=== PATIENT | female | born 1940 | race Caucasian/White ===

== ENCOUNTER 2020-03-06 14:41 | Observation (INO) ==
--- NOTE | 2020-03-06 15:48 | Emergency Department Note ---
History of Present Illness General Chief complaint: Dizziness Time Seen by Provider: 03/06/20 15:19 Source: patient Mode of arrival: EMS Limitations: no limitations History of Present Illness Maximum Pain Intensity: 2 This patient is an 80-year-old female who presents to the emergency department for evaluation of head pressure and hypertension. Patient was seen here Monday due to head pressure, dizziness and elevated blood pressure. She states that her Lopressor dosage was doubled at that visit. She had her pressure checked yesterday which was normal. She states that today, she woke up and felt very fatigued despite getting a good night sleep. She developed some head pressure. She states that this was not painful, but just a pressure sensation. She checked her blood pressure and found it to be elevated, initially 168/84 which then increased to 175/94. She had some chest pressure at this time. She called 911 and when they checked her blood pressure, it was even more elevated. She was given nitro and aspirin in the ambulance with improvement of her blood pressure and improvement of her symptoms. Her daughter states that the patient sounded out of breath when she called her, but the patient denies shortness of breath. Patient denies numbness, weakness, blurred/double vision, slurred spee ch, confusion, abdominal pain, nausea or vomiting. Patient has a history of "heart blockage" which was found on a catheterization done 2 years ago in [place]. She states they were not able to stent the blockage and decided on medical management instead. She sees Dr. Montano locally, but denies stress test or catheterization since that. She states that the catheterization was done due to fatigue as well as pain across her upper back. Patient additionally reports history of TIA and "a silent stroke" and takes Plavix. Home Medications Home Medications Medication Instructions Recorded Confirmed Type PreserVision AREDS-2 1 tab PO AMHS 03/06/20 03/06/20 History Stiolto Respimat 2 puff INHALATION DAILY PRN 03/06/20 03/06/20 History aspirin 81 mg PO DAILY 03/06/20 03/06/20 History clopidogrel [Plavix] 75 mg PO DAILY 03/06/20 03/06/20 History dicyclomine 20 mg PO DAILY 03/06/20 03/06/20 History metoprolol tartrate 25 mg PO BID 11/13/20 11/13/20 History omeprazole 20 mg PO QAM 03/06/20 03/06/20 History ranolazine [Ranexa] 500 mg PO BID 03/06/20 03/06/20 History rosuvastatin 20 mg PO DAILY 03/06/20 03/06/20 History trimethoprim 100 mg PO MOWEFR 03/06/20 03/06/20 History isosorbide mononitrate 60 mg PO DAILY #30 tab 03/07/20 Rx lisinopril 10 mg PO QAM #30 tab 03/07/20 Rx Allergies Allergy/AdvReac Type Severity Reaction Status Date / Time No Known Allergies Allergy Verified 03/06/20 19:32 Past Med/Surg History Medical History GERD (gastroesophageal reflux disease) History of CVA (cerebrovascular accident) Hypertension Surgical History H/O cardiac catheterization Patient states performed in 2018 in [place], showed "blockage" per patient that was not amenable to stenting History of Pramod fundoplication Social History Smoking Status: Never smoker Tobacco Type: Cigarettes Hx Alcohol Use: No Hx Substance Use: No Preferred Language: Pashto Communication Ability: Effective Solid State Tester Required: No Beliefs That Will Affect Care: None Current Living Situation: Spouse Other Information That Helps Us Care for You: No Feels Safe at Home: Yes Safety Concerns: Feels Safe At This Time Assistive Devices: None Review of Systems A total of 10 systems reviewed and were otherwise negative Physical Exam Vital Signs Vital Signs - 24 hr 03/06/20 14:48 Temperature 37.2 C Temperature Source Oral Pulse Rate 79 Respiratory Rate 18 Blood Pressure 171/88 H Blood Pressure Mean 115 Pulse Oximetry 92 Oxygen Delivery Method Room Air Sepsis Recent Fever Within 48 Hours No Sepsis New/Unexplained Change in Mental Status N/A Sepsis Action Taken by Nursing No Action Required VITALS: Vitals are noted on the nurse's note and reviewed by myself. GENERAL: This is an 80-year-old female, in no acute distress, nondiaphoretic, well-developed well-nourished. SKIN: The skin was without rashes. HEAD: Normocephalic atraumatic. EARS: External auditory canals clear, tympanic membranes pearly canchola without erythema or effusion bilaterally. EYES: Pupils equal round and reactive to light and accommodation. Extraocular movements intact. MOUTH: Mucous membranes moist. Tonsils are not enlarged. Pharynx without erythema or exudate. NECK: Supple without nuchal rigidity. No lymphadenopathy. HEART: Regular rate and rhythm without murmurs gallops or rubs. LUNGS: Clear to auscultation bilaterally without wheezes, rales or rhonchi. ABDOMEN: Positive bowel sounds x 4. Soft, nontender to palpation. MUSCULOSKELETAL: Full range of motion throughout. Strength 5/5 in all extremities. NEURO: Patient was alert and oriented to person place and time. No focal neurological deficits. Course Consultations Consultation #1: Dr. Luis Donohue hospitalist Administered Medications Discontinued Medications Acetaminophen (Acetaminophen 325 Mg Tab) 650 mg PO Q4H PRN PRN Reason: Pain or Fever Stop: 04/05/20 19:47 Last Admin: 03/07/20 05:29 Dose: 650 mg Documented by: [id number] Aspirin (Aspirin 81 Mg Ectab) 81 mg PO DAILY [place] Stop: 04/06/20 08:59 Last Admin: 03/07/20 08:31 Dose: 81 mg Documented by: [id number] Clopidogrel Bisulfate (Clopidogrel Bisulfate 75 Mg Tab) 75 mg PO DAILY [place] Stop: 04/06/20 08:59 Last Admin: 03/07/20 08:32 Dose: 75 mg Documented by: [id number] Dicyclomine HCl (Dicyclomine Hcl 20 Mg Tab) 20 mg PO DAILY [place] Stop: 04/06/20 08:59 Last Admin: 03/07/20 08:32 Dose: 20 mg Documented by: [id number] Heparin Sodium (Porcine) (Heparin Sod 5,000 Unit/0.5 Ml Vial) 5,000 units SQ Q8 [place] Stop: 04/06/20 05:59 Last Admin: 03/07/20 14:13 Dose: 5,000 units Documented by: [id number] Admin: 03/07/20 05:32 Dose: 5,000 units Documented by: [id number] Dextrose/Sodium Chloride (D5w And Nss) 1,000 mls @ 100 mls/hr IV .Q10H [place] Stop: 04/06/20 01:59 Last Admin: 03/07/20 11:54 Dose: 100 mls/hr Documented by: [id number] Infusion: 03/07/20 11:54 Dose: 100 mls/hr Documented by: [id number] Admin: 03/07/20 03:51 Dose: 100 mls/hr Documented by: [id number] Influenza Virus Vaccine Quadrival (Influenza Virus Quad Vaccine 0.5 Ml Syr) 0.5 ml IM .ONCE ONE Stop: 03/06/20 23:06 Last Admin: 03/07/20 07:25 Dose: Not Given Documented by: [id number] Isosorbide Mononitrate (Isosorbide [place] Extended Rel 30 Mg Tabcr) 30 mg PO NOW ONE Stop: 03/06/20 19:56 Last Admin: 03/06/20 23:33 Dose: 30 mg Documented by: [id number] Isosorbide Mononitrate (Isosorbide [place] Extended Rel 60 Mg Tabcr) 60 mg PO DAILY [facility] Stop: 04/06/20 08:59 Last Admin: 03/07/20 08:31 Dose: 60 mg Documented by: [id number] Lisinopril (Lisinopril 10 Mg Tab) 10 mg PO QAM [place] Stop: 04/06/20 08:59 Last Admin: 03/07/20 08:31 Dose: 10 mg Documented by: [id number] Loperamide HCl (Loperamide Hcl 2 Mg Cap) 2 mg PO NOW STA Stop: 03/07/20 00:30 Last Admin: 03/07/20 00:48 Dose: 2 mg Documented by: [id number] Metoprolol Tartrate (Metoprolol Tartrate 25 Mg Tab) 25 mg PO NOW STA Stop: 03/06/20 22:52 Last Admin: 03/06/20 23:33 Dose: 25 mg Documented by: [id number] Metoprolol Tartrate (Metoprolol Tartrate 25 Mg Tab) 25 mg PO BID [place] Stop: 04/06/20 08:59 Last Admin: 03/07/20 08:32 Dose: 25 mg Documented by: [id number] Miscellaneous (Trimethoprim~Order Awaiting Action) 1 ea N/A QS [facility] Stop: 04/06/20 00:00 Last Admin: 03/07/20 14:07 Dose: Not Given Documented by: [id number] Admin: 03/07/20 07:24 Dose: Not Given Documented by: [id number] Admin: 03/07/20 01:05 Dose: Not Given Documented by: [id number] Multivitamins/Minerals (Cerovite Adv Formula Tab) 1 tab PO AMHS [place] Stop: 04/06/20 08:59 Last Admin: 03/07/20 08:32 Dose: 1 tab Documented by: [id number] Nitroglycerin (Nitroglycerin 2% Ointment 30gm Tube) 0.5 inch EXT Q6H [place] Stop: 04/06/20 00:00 Last Admin: 03/07/20 05:36 Dose: Not Given Documented by: [id number] Admin: 03/07/20 01:05 Dose: 0.5 inch Documented by: [id number] Pantoprazole Sodium (Pantoprazole 40 Mg Tab) 40 mg PO QAM [place] Stop: 04/06/20 08:59 Last Admin: 03/07/20 08:31 Dose: 40 mg Documented by: [id number] Ranolazine (Ranolazine 500 Mg Er Tab) 500 mg PO BID [place] Stop: 04/05/20 23:12 Last Admin: 03/07/20 08:31 Dose: 500 mg Documented by: [id number] Admin: 03/07/20 00:26 Dose: 500 mg Documented by: [id number] Rosuvastatin Calcium (Rosuvastatin Calcium 20 Mg Tab) 20 mg PO DAILY [place] Stop: 04/06/20 08:59 Last Admin: 03/07/20 08:32 Dose: 20 mg Documented by: [id number] Medical Decision Making Differential Diagnosis Benign hypertension, hypertensive emergency, cardiovascular pathology, toxic ologic, pheochromocytoma, electrolyte abnormality, renal disease, endorgan damage, as well as other pathologies. Medical Records Attestation: I reviewed the patient's medical records. Home Medications Current Medication List: was personally reviewed by me Laboratory Data Attestation: I reviewed the patient's lab results. Result diagrams: 03/06/20 15:46 03/06/20 15:46 Lab Results 03/06/20 03/06/20 Range/Units 15:46 15:46 WBC 5.16 (4.8-10.8) K/uL RBC 4.39 (4.2-5.4) M/uL Hgb 13.4 (12.0-16.0) g/dL Hct 40.6 (37-47) % MCV 92.5 (80-100) fL MCH 30.5 (25-34) pg MCHC 33.0 (32-36) g/dL RDW Std Deviation 44.0 (36.4-46.3) fL RDW Coeff of Julien 13.1 (11.5-14.5) % Plt Count 184 (130-400) K/uL MPV 9.8 (7.4-10.4) fL Immature Gran % (Auto) 0.2 % Neut % (Auto) 64.4 % Lymph % (Auto) 26.2 % [place] % (Auto) 7.6 % Eos % (Auto) 1.4 % Baso % (Auto) 0.2 % Neut # (Auto) 3.33 (1.4-6.5) K/uL Lymph # (Auto) 1.35 (1.2-3.4) K/uL [place] # (Auto) 0.39 (0.11-0.59) K/uL Eos # (Auto) 0.07 (0-0.5) K/uL Baso # (Auto) 0.01 (0-0.2) K/uL Immature Gran # (Auto) 0.01 (0.00-0.02) K/uL Sodium 144 (136-145) mmol/L Potassium 3.7 (3.5-5.1) mmol/L Chloride 109 H (98-107) mmol/L Carbon Dioxide 32 (21-32) mmol/L Anion Gap 3.0 (3-11) BUN 18 (7-18) mg/dl Creatinine 0.82 (0.6-1.2) mg/dl Est Cr Clr Drug Dosing 45.0 ml/min Est GFR ( Amer) 77.2 Est GFR (Non-Af Amer) 66.6 BUN/Creatinine Ratio 21.9 H (10-20) Glucose 118 H (70-99) mg/dl Calcium 8.8 (8.5-10.1) mg/dl Total Bilirubin 0.6 (0.2-1) mg/dl AST 11 L (15-37) U/L ALT 15 (12-78) U/L Alkaline Phosphatase 59 (45-117) U/L Troponin I < 0.015 (0-0.045) ng/ml Total Protein 6.7 (6.4-8.2) gm/dl Albumin 3.4 (3.4-5.0) gm/dl Globulin 3.3 (2.5-4.0) gm/dl Albumin/Globulin Ratio 1.0 (0.9-2) Imaging Data Attestation: I personally reviewed and interpreted this imaging study as follows: Radiologist's Impression: XR chest 1V portable HISTORY: 80 years-old Female Hypertension acute hypertension COMPARISON: Chest radiograph 03/02/2020 TECHNIQUE: Portable AP view of the chest FINDINGS: Cardiac silhouette is mildly enlarged. Calcified plaque of the thoracic aortic arch. There is no pneumothorax, pleural effusion, airspace consolidation or overt pulmonary edema. Minimal bibasilar densities suggest atelectasis. Possible calcified granuloma of the lateral right midlung, 10 mm. Bones of the chest appear grossly intact. Degenerative changes of the shoulders and spine. IMPRESSION: Cardiomegaly without acute process. ECG Data Attestation: I personally reviewed and interpreted this ECG as follows: Indication: + chest pain Rate (beats per minute): 71 Rhythm: + normal sinus ECG Intervals/blocks: + Normal QRS ECG ST segments: + Normal ST segments ECG Findings: + PACs Change: the following changes noted (pacs noted) MDM Narrative The patient is an 80-year-old female who presents today for evaluation of hypertension as well as an episode of head pressure and chest pressure. Patient's symptoms were relieved by nitroglycerin, blood pressure did improve with nitro administration. Labs are unremarkable, no leukocytosis, anemia or concerning electrolyte abnormalities. Troponin is not elevated. EKG unremarkable. This is the patient's second visit this week for similar symptoms. She does have a known cardiac history. Given the symptoms as well as the chest pain relieved by nitro today, I feel the patient will need to be admitted for hypertensive urgency. The case was discussed with the [facility] service, who agreed to evaluate the patient for further care. The patient was independently evaluated by Dr. Lindsey, who agreed with my assessment and treatment plan. Impression & Plan Hypertensive urgency Discharge Plan Visit Data Chief Complaint: Dizziness ED Provider: Taran Lindsey ED Midlevel Provider: Angie Parra Discharge Problem: Hypertensive urgency Patient Disposition: Admitted As Inpatient Condition: Good Discharge Instructions Interventions: ED Discharge Assessment Last Done: 03/06/20 22:34
[2020-03-06 16:08] LABS: Basophils # (auto) 0.01 K/uL (0-0.2); Basophils % (auto) 0.2 %; Eosinophils # (auto) 0.07 K/uL (0-0.5); Eosinophils % (auto) 1.4 %; Hematocrit (blood only) 40.6 % (37-47); Hemoglobin 13.4 g/dL (12.0-16.0); Immature Granulocytes # (auto) 0.01 K/uL (0.00-0.02); Immature Granulocytes % (auto) 0.2 %; Lymphocytes # (auto) 1.35 K/uL (1.2-3.4); Lymphocytes % (auto) 26.2 %; Mean Corpuscular Hemoglobin 30.5 pg (25-34); Mean Corpuscular Volume 92.5 fL (80-100); Mean Platelet Volume 9.8 fL (7.4-10.4); Monocytes # (auto) 0.39 K/uL (0.11-0.59); Monocytes % (auto) 7.6 %; Neutrophils # (auto) 3.33 K/uL (1.4-6.5); Neutrophils % (auto) 64.4 %; Platelet Count 184 K/uL (130-400); RDW Coefficient of Variation 13.1 % (11.5-14.5); Red Blood Count 4.39 M/uL (4.2-5.4); White Blood Count 5.16 K/uL (4.8-10.8)
[2020-03-06 16:24] LABS: Alanine Aminotransferase 15 U/L (12-78); Albumin Level 3.4 gm/dl (3.4-5.0); Aspartate Aminotransferase 11 U/L (15-37); BUN Creatinine Ratio 21.9 (10-20); Blood Urea Nitrogen 18 mg/dl (7-18); Calcium 8.8 mg/dl (8.5-10.1); Carbon Dioxide 32 mmol/L (21-32); Chloride 109 mmol/L (98-107); Est GFR (African American) 77.2; Est GFR (Non-African American) 66.6; Glucose 118 mg/dl (70-99); Potassium 3.7 mmol/L (3.5-5.1); Sodium 144 mmol/L (136-145)
[2020-03-06 16:29] LABS: Alkaline Phosphatase 59 U/L (45-117); Bilirubin,Total 0.6 mg/dl (0.2-1); Globulin 3.3 gm/dl (2.5-4.0); Total Protein 6.7 gm/dl (6.4-8.2); Troponin I < 0.015 ng/ml (0-0.045)
--- NOTE | 2020-03-06 16:45 | XRay Report ---
XR chest 1V portable HISTORY: 80 years-old Female Hypertension acute hypertension COMPARISON: Chest radiograph 03/02/2020 TECHNIQUE: Portable AP view of the chest FINDINGS: Cardiac silhouette is mildly enlarged. Calcified plaque of the thoracic aortic arch. There is no pneu mothorax, pleural effusion, airspace consolidation or overt pulmonary edema. Minimal bibasilar densit ies suggest atelectasis. Possible calcified granuloma of the lateral right midlung, 10 mm. Bones of t he chest appear grossly intact. Degenerative changes of the shoulders and spine. IMPRESSION: Cardiomegaly without acute process. ACT 112: Negative or not required by law. The above report was generated using voice recognition software. It may contain grammatical, syntax o r spelling errors. Electronically signed by: David Irving M.D. 03/06/2020 4:43 PM
--- NOTE | 2020-03-06 18:40 | Emergency Department Note ---
ED Visit Note The patient was seen and examined with eloisa. I agree with the history, physical and findings. Please see the note for disposition and details. .
[2020-03-06] MEDS ORDERED: POLYETHYLENE (MIRALAX) 17 GM PACK PO PRN (19:48)
[2020-03-06] MEDS ORDERED: ACETAMINOPHEN 325 MG TAB PO PRN (19:48)
[2020-03-06] MEDS ORDERED: ONDANSETRON INJ 2 MG/ML 2 ML VIAL IV PRN (19:48)
[2020-03-06] MEDS ORDERED: ALUMINUM/MAGNESIUM SUSP 30 ML UDC PO PRN (19:48)
[2020-03-06] MEDS ORDERED: MAGNESIUM HYDROXIDE SUSP 30 ML UDC PO PRN (19:48)
[2020-03-06] MEDS ORDERED: ISOSORBIDE MONO EXTENDED REL 30 MG TABCR PO ONE (19:55)
--- NOTE | 2020-03-06 19:57 | History & Physical Report ---
Date of Service March 06, 2020 Assessment & Plan (1) Hypertensive urgency: presented with chest heaviness, Dizzy spell with SBP > 190 pt is on Lopressor 25 mg BID( dose recently increased ) , imdur 30 mg daily - taking meds as directed ordered for nitro paste , increase Imdur 60 mg daily resting ECHO to assess hypertensive heart disease Cardiology consulted CHEST HEAVINESS : due to hypertensive urgency pt felt symptom free as BP improved to 150's r/o ACS serial troponin /resting ECHO cardiology eval cont nitropaste (2) Dizziness: felt dizzy , lightheaded , headache possible due to hypertension ? no symptom at present no weakness or paresthesia CT Head non contrast ordered monitor in Tele Full code History of Present Illness Chief Complaint: dizzy spell , chest heaviness Primary Care Provider: Erika Venegas MD this is a 80 yo F with past medical hx of hypertension , coronary artery disease -presents to ER with complain of Dizzy spell , chest heaviness SBP elevated > 190 pt had similar symptom on Monday -was in ER -her lopressor dose was increased to 25 mg BID pt reports of taking her meds as instructed , for the past few days -reports of increased fatigue . MERRITT , episodes of palpitation while at rest no sycope this morning she started to experience similar symptoms of dizzy spell and lightheaded , feeling flushed no weakness or paresthesia , no blurred vision , pt found to be in hypertensive urgency in ER sbp > 196 EKG NSR , no acute ST-T wave changes Chest Xray no pulmonary congestion Allergies Allergy/AdvReac Type Severity Reaction Status Date / Time No Known Allergies Allergy Verified 03/06/20 19:32 Home Medications Home Medications Medication Instructions Recorded Confirmed Type aspirin [Aspir-Low] 81 mg PO DAILY 03/06/20 03/06/20 History clopidogrel [Plavix] 75 mg PO DAILY 03/06/20 03/06/20 History dicyclomine 20 mg PO DAILY 03/06/20 03/06/20 History isosorbide mononitrate 30 mg PO DAILY 03/06/20 03/06/20 History metoprolol tartrate 25 mg PO BID 03/06/20 03/06/20 History omeprazole 20 mg PO QAM 03/06/20 03/06/20 History ranolazine [Ranexa] 500 mg PO BID 03/06/20 03/06/20 History rosuvastatin 20 mg PO DAILY 03/06/20 03/06/20 History tiotropium-olodaterol [Stiolto 2 puff INHALATION DAILY PRN 03/06/20 03/06/20 History Respimat] trimethoprim 100 mg PO MOWEFR 03/06/20 03/06/20 History vit C,P-Nh-ghxfa-lutein-zeaxan 1 tab PO AMHS 03/06/20 03/06/20 History [PreserVision AREDS-2] Past Med/Surg History Medical History GERD (gastroesophageal reflux disease) History of CVA (cerebrovascular accident) Hypertension Surgical History H/O cardiac catheterization Patient states performed in 2018 in [place], showed "blockage" per patient that was not amenable to stenting History of Pramod fundoplication Social History Smoking Status: Never smoker Tobacco Type: Cigarettes Hx Alcohol Use: No Hx Substance Use: No Preferred Language: Polish Communication Ability: Effective Scaler Required: No Beliefs That Will Affect Care: None Current Living Situation: Spouse Other Information That Helps Us Care for You: No Feels Safe at Home: Yes Safety Concerns: Feels Safe At This Time Assistive Devices: CPAP, Denture - Upper and Glasses Review of Systems Review of Systems: All systems reviewed & are unremarkable except as noted in HPI & below Constitutional: as per Subjective / HPI, + fatigue and + weakness Eyes: no diplopia Respiratory: + dyspnea on exertion; no cough Cardiovascular: + dyspnea and + lightheadedness Additional Comments: chest heaviness Gastrointestinal: no nausea Neurologic: + dizziness and + headache(s) Physical Exam Constitutional: WD/WN, vitals as above no acute distress Eyes: PERRL, conjunctivae normal, anicteric sclerae ENMT: external ear and nose normal, oropharynx normal Neck: trachea midline, no thyromegaly Respiratory: normal respiratory effort, lungs clear to auscultation Cardiovascular: RRR, no murmur, no edema Gastrointestinal (Abdomen): normal bowel sounds, soft, nontender, no hepatosplenomegaly Musculoskeletal: no cyanosis or clubbing, extremities motor strength 5/5 Skin: no rashes, warm and dry Neurologic: PERRL, EOMI, accommodation nl, no face palsy, no dysarthria Psychiatric: A+Ox3, euthymic affect Results & Data Results & Data ([facility]) Vital Signs (Past 12 Hours) Vital Signs Temp Pulse Resp BP Pulse Ox 03/06/20 18:00 69 18 160/76 H 03/06/20 17:30 78 17 164/72 H 03/06/20 17:00 82 15 178/79 H 03/06/20 16:57 84 19 173/76 H 03/06/20 16:30 80 20 03/06/20 16:00 79 03/06/20 15:30 75 20 03/06/20 14:48 37.2 C 79 18 171/88 H 92 03/06/20 14:44 77 19 171/88 H Code Status & VTE Plan VTE Prophylaxis Plan VTE Prophylaxis will be ordered: Yes
[2020-03-06] MEDS ORDERED: METOPROLOL TARTRATE 25 MG TAB PO STA (22:51)
[2020-03-06] MEDS ORDERED: INFLUENZA ADMINISTRATION CHARGE ONE (23:05)
[2020-03-06] MEDS ORDERED: INFLUENZA VIRUS QUAD VACCINE 0.5 ML SYR IM ONE (23:05)
[2020-03-06] MEDS ORDERED: UMECLIDINIUM/VILANTEROL 62.5/25MCG 7 PUFFS/INHALER INH PRN (23:24)
[2020-03-07] MEDS: RANOLAZINE 500 MG ER TAB PO SCH ×2 (00:26→08:31)
[2020-03-07] MEDS ORDERED: LOPERAMIDE HCL 2 MG CAP PO STA (00:29)
[2020-03-07] MEDS: NITROGLYCERIN 2% OINTMENT 30GM TUBE EXT SCH ×2 (01:05→05:36)
[2020-03-07] MEDS: D5W AND NSS 1,000 ML IV SCH ×2 (03:51→11:54)
[2020-03-07] MEDS: HEPARIN SOD 5,000 UNIT/0.5 ML VIAL SQ SCH ×2 (05:32→14:13)
--- NOTE | 2020-03-07 06:35 | Hospitalist Progress Note ---
Date of Service March 07, 2020 Assessment & Plan (1) Hypertensive urgency: presented with chest heaviness, Dizzy spell with SBP > 190 pt is on Lopressor 25 mg BID( dose recently increased ) , imdur 30 mg daily - taking meds as directed ordered for nitro paste , increase Imdur 60 mg daily resting ECHO to assess hypertensive heart disease Cardiology to see CHEST HEAVINESS : due to hypertensive urgency pt felt symptom free as BP improved to 150's r/o ACS serial troponin /resting ECHO cont nitropaste (2) Dizziness: felt dizzy , lightheaded , headache possible due to hypertension ? no symptom at present no weakness or paresthesia CT Head non contrast ordered Full code labs checked ROS-No Headache, No Visual Changes, No Nausea, No Vomiting, No Fever, No Chills, No Neck Pain or Stiffness, No Chest Pain, No Palpitations, No SOB, No MERRITT, No Cough, No Sputum, No Wheezing, No Abdominal Pain, No Diarrhea, No Hematemesis, No Hemoptysis, No Unexpected Weight Loss, No Flank pain, No Melena, No Hematoc hezia, No Frequency, No Urgency, No Burning, No Hematuria, No Rashes, No Diaphoresis. Appetite is Normal Physical Exam Gen-AAO x 3, NAD, Afebrile Head-NCAT, EOMI, PERRLA, Anicteric Sclera, No Posterior Pharyngeal Erythema Neck-Supple, No JVD, No Thyromegaly, No Masses, No LAD, No Bruits Lungs-Clear to Auscultation Bilaterally, No Rales, No Rhonchi, No Wheezing, No Crepitus Chest-No S4, +S1, +S2, No S3, No Murmurs, No Rubs, No Gallops, No Ectopy Abdomen-Soft, Bowel Sounds Present, Non Tender, Non Distended, No Hepatomegaly, No Splenomegaly, No Palpable Masses, No Rebound, No Rigidity, No Guarding Musculoskeletal-Full Range of Motion Bilaterally, No CVAT Extremities-No Cyanosis, No Clubbing, No Edema Nuero-Cranial Nerves II-XII grossly intact, Motor WNL, DTRs WNL, Strength WNL, Non Focal Psych-Normal Mood Admission and Anticipated Discharge Date Admission Date: March 06, 2020 Results & Data Results & Data ([facility]) Vital Signs (Past 12 Hours) Vital Signs Temp Pulse Pulse Resp BP BP BP 03/07/20 04:28 36.5 C 58 L 16 113/57 L 03/06/20 23:00 82 03/06/20 22:54 36.8 C 87 16 192/86 H 03/06/20 22:36 36.8 C 16 192/86 H 03/06/20 22:34 78 14 171/111 H 03/06/20 21:00 84 30 H 184/115 H 03/06/20 20:30 90 19 181/88 H 03/06/20 20:01 78 17 186/77 H 03/06/20 20:00 102 H 18 03/06/20 19:30 81 18 175/105 H 03/06/20 19:00 67 22 188/95 H 03/06/20 18:54 82 22 196/85 H 03/06/20 18:53 80 22 Pulse Ox 03/07/20 04:28 97 03/06/20 23:00 03/06/20 22:54 96 03/06/20 22:36 96 03/06/20 22:34 98 03/06/20 21:00 03/06/20 20:30 03/06/20 20:01 03/06/20 20:00 03/06/20 19:30 03/06/20 19:00 03/06/20 18:54 03/06/20 18:53
[2020-03-07 08:36] LABS: Prothrombin Time 10.9 Seconds (9.0-12.0)
[2020-03-07] MEDS ORDERED: PANTOprazole 40 MG TAB PO SCH (09:00)
[2020-03-07] MEDS ORDERED: ASPIRIN 81 MG ECTAB PO SCH ×2 (09:00)
[2020-03-07] MEDS ORDERED: ISOSORBIDE MONO EXTENDED REL 60 MG TABCR PO SCH (09:00)
[2020-03-07] MEDS ORDERED: lisinopril 10 MG TAB PO SCH (09:00)
[2020-03-07] MEDS ORDERED: DICYCLOMINE HCL 20 MG TAB PO SCH (09:00)
[2020-03-07] MEDS ORDERED: METOPROLOL TARTRATE 25 MG TAB PO SCH (09:00)
[2020-03-07] MEDS ORDERED: CEROVITE ADV FORMULA TAB PO SCH (09:00)
[2020-03-07] MEDS ORDERED: ROSUVASTATIN CALCIUM 20 MG TAB PO SCH (09:00)
[2020-03-07] MEDS ORDERED: CLOPIDOGREL BISULFATE 75 MG TAB PO SCH (09:00)
[2020-03-07 09:14] LABS: Thyroid Stimulating Hormone 2.77 uIu/ml (0.300-4.500); Troponin I 0.021 ng/ml (0-0.045)
--- NOTE | 2020-03-07 09:21 | CT Scan Report ---
CT head/brain wo con CLINICAL HISTORY: 80 years-old Female with dizzy spell /hypertensive urgency. Acute dizziness with h ypertension TECHNIQUE: Multiple axial CT images of the head were obtained without contrast. A dose lowering tech nique was utilized adhering to the principles of ALARA. CT DOSE: 537.48 mGy.cm COMPARISON: Head CT 03/02/2020. FINDINGS: No acute intracranial hemorrhage, midline shift, intracranial mass, hydrocephalus, territorial ischem ia or abnormal extra-axial collection. Age-related involutional changes. Mild patchy white matter hyp odensities suggest chronic microvascular ischemic disease. The calvarium is intact. Prior bilateral lens replacement. The paranasal sinuses, mastoid air cells, and middle ear cavities are clear. IMPRESSION: No acute intracranial abnormality. ACT 112: Negative or not required by law. The above report was generated using voice recognition software. It may contain grammatical, syntax o r spelling errors. Electronically signed by: David Irving M.D. 03/07/2020 9:20 AM
--- NOTE | 2020-03-07 10:44 | Cardiology Consultation ---
Date of Consultation March 07, 2020 Assessment & Plan (1) Hypertensive urgency: (2) Labile hypertension: (3) Dizziness: (4) Chest pressure: (5) Headache: 80-year-old female presents to the emergency department with recurrent uncontrolled hypertension with associated headache, head pressure, and chest pressure. Symptoms resolved with topical nitrates and titration of isosorbide monohydrate. Recommend continuing isosorbide monohydrate at 60 mg daily and metoprolol 25 mg twice daily in addition to other medications listed above. Discontinue topical nitrates. Continue to monitor blood pressure this morning. If BP remains controlled and she is asymptomatic. Patient may be discharged to home with outpatient cardiology follow-up in 1 week, with Dr. Montano. Consideration for outpatient Lexiscan nuclear stress testing pending clinical evaluation during that visit. Sodium restriction advised. Resting 2D transthoracic echocardiogram pending at this time. With complaints of warmth and flushing associated with dizziness, I am concerned symptoms may be vagally mediated with cardioinhibitory versus hypotensive response. Recommend 14-day ZIO monitor to be placed during outpatient cardiology follow-up. Assess orthostatic blood pressure prior to discharge. Thank you for allowing to participate in the care of your patient. History of Present Illness Reason for Consultation: Chest pain, dizziness Requesting Physician: Dr. Smith Attending Physician: Quique Ralph DO History of Present Illness 80-year-old female presented to the emergency department with elevated blood pressure, chest heaviness, and dizziness. Evaluated in the ER 03/02/2020 for similar symptoms. Metoprolol titrated to 25 mg twice daily and she returned to her apartment near [facility]. Patient was faring well throughout the week until Monday when she noted elevated blood pressure, 190/80s. She became concerned and discussed with her family members. There was associated head and chest pressure. Treated with topical nitrates in the ER with subsequent imp rovement of BP. Blood pressure markedly improved this morning after receiving her a.m. medications. I personally removed her Nitropaste in the room during today's visit. In general, she denies any exertional chest pressure or heaviness. No unusual shortness of breath. Functional capacity stable. No orthopnea, PND, or worsening lower extremity edema. Carries history of coronary artery disease involving undisclosed vessel. She was told in [place] that this vessel could not be stented due to the blockage location and that single-vessel bypass was the only option. Details are not well defined per review of the medical record. Currently, patient is resting comfortably. Blood pressure improved as noted above. Denies head pressure or chest discomfort. Telemetry demonstrates sinus rhythm with premature atrial complexes as well as periods of sinus arrhythmia. No significant pauses, sustained tacky dysrhythmia, or symptomatic bradycardia recorded. Allergies Allergy/AdvReac Type Severity Reaction Status Date / Time No Known Allergies Allergy Verified 03/06/20 19:32 Home Medications Home Medications Medication Instructions Recorded Confirmed Type aspirin [Aspir-Low] 81 mg PO DAILY 03/06/20 03/06/20 History clopidogrel [Plavix] 75 mg PO DAILY 03/06/20 03/06/20 History dicyclomine 20 mg PO DAILY 03/06/20 03/06/20 History isosorbide mononitrate 30 mg PO DAILY 03/06/20 03/06/20 History metoprolol tartrate 25 mg PO BID 03/06/20 03/06/20 History omeprazole 20 mg PO QAM 03/06/20 03/06/20 History ranolazine [Ranexa] 500 mg PO BID 03/06/20 03/06/20 History rosuvastatin 20 mg PO DAILY 03/06/20 03/06/20 History tiotropium-olodaterol [Stiolto 2 puff INHALATION DAILY PRN 03/06/20 03/06/20 History Respimat] trimethoprim 100 mg PO MOWEFR 03/06/20 03/06/20 History vit C,U-Iw-fphwb-lutein-zeaxan 1 tab PO AMHS 03/06/20 03/06/20 History [PreserVision AREDS-2] Patient History Medical History GERD (gastroesophageal reflux disease) History of CVA (cerebrovascular accident) Hypertension Surgical History H/O cardiac catheterization Patient states performed in 2018 in [place], showed "blockage" per patient that was not amenable to stenting History of Pramod fundoplication Social History Smoking Status: Never smoker Tobacco Type: Cigarettes Hx Alcohol Use: No Hx Substance Use: No Preferred Language: Algerian Communication Ability: Effective [employer] Finisher Required: No Beliefs That Will Affect Care: None Current Living Situation: Spouse Other Information That Helps Us Care for You: No Feels Safe at Home: Yes Safety Concerns: Feels Safe At This Time Assistive Devices: None Review of Systems Review of Systems: All systems reviewed & are unremarkable except as noted in HPI & below Physical Exam Constitutional: well developed and well nourished; not ill appearing Respiratory: normal respiratory effort; no respiratory distress, no labored breathing, no retractions and does not use accessory muscles Auscultation: no crackles, no rales, no rhonchi and no wheezes Cardiovascular: Rate/Rhythm: regular rate and regular rhythm Heart Sounds: normal S1 and normal S2; no gallop, no murmur and no cardiac rub Vessels: no JVD Extremities: + edema Gastrointestinal (Abdomen): Inspection/Auscultation: abdomen normal to inspection and normal bowel sounds; abdomen not distended Percussion/Palpation: abdomen soft; abdomen nontender, no guarding and abdomen not rigid Skin: no rashes, warm and dry Neurologic: PERRL, EOMI, accommodation nl, no face palsy, no dysarthria Motor/Sensory: no tremor Psychiatric: A+Ox3, euthymic affect Results & Data ([facility]) Vital Signs (Past 12 Hours) Vital Signs Temp Pulse Pulse Resp BP BP Pulse Ox 03/07/20 07:23 78 03/07/20 07:13 36.6 C 77 18 122/72 96 03/07/20 04:28 36.5 C 58 L 16 113/57 L 97 03/06/20 23:00 82 03/06/20 22:54 36.8 C 87 16 192/86 H 96 03/06/20 22:36 36.8 C 16 192/86 H 96 (1) Headache Headache chronicity pattern: acute headache Headache type: unspecified Intractability: not intractable Qualified Code(s): R51.9 - Headache, unspecified
[2020-03-07 15:00] LABS: Appearance Urine Clear (Clear); Bacteria Urine Automated Negative (Negative); Bilirubin Urine Negative (Negative); Blood Urine Negative (Negative); Cast Urine Automated 0 /lpf (0-5); Color Urine Yellow; Glucose Urine UA Negative (Negative); Ketones Urine Negative (Negative); Leukocyte Esterase Urine Trace (Negative); Nitrite Urine Negative (Negative); Protein Urine Negative (Negative); RBC Urine Automated 0-4 /hpf (0-4); Specific Gravity Urine 1.021 (1.000-1.030); Urobilinogen Urine Negative (Negative); pH Urine 5.5 (4.5-7.5)
--- NOTE | 2020-03-07 16:13 | Discharge Summary ---
Date of Service March 07, 2020 Admission HPI Per Admitting Provider this is a 80 yo F with past medical hx of hypertension , coronary artery disease -presents to ER with complain of Dizzy spell , chest heaviness SBP elevated > 190 pt had similar symptom on Monday -was in ER -her lopressor dose was increased to 25 mg BID pt reports of taking her meds as instructed , for the past few days -reports of increased fatigue . MERRITT , episodes of palpitation while at rest no sycope this morning she started to experience similar symptoms of dizzy spell and lightheaded , feeling flushed no weakness or paresthesia , no blurred vision , pt found to be in hypertensive urgency in ER sbp > 196 EKG NSR , no acute ST-T wave changes Chest Xray no pulmonary congestion Admission Exam Per Admitting Provider Constitutional: WD/WN, vitals as above no acute distress Eyes: PERRL, conjunctivae normal, anicteric sclerae ENMT: external ear and nose normal, oropharynx normal Neck: trachea midline, no thyromegaly Respiratory: normal respiratory effort, lungs clear to auscultation Cardiovascular: RRR, no murmur, no edema Gastrointestinal (Abdomen): normal bowel sounds, soft, nontender, no hepato splenomegaly Musculoskeletal: no cyanosis or clubbing, extremities motor strength 5/5 Skin: no rashes, warm and dry Neurologic: PERRL, EOMI, accommodation nl, no face palsy, no dysarthria Psychiatric: A+Ox3, euthymic affect Principal Diagnosis HTN Urgency Dizziness Chest Pressure Discharge Exam See below Discharge Data Allergies Allergy/AdvReac Type Severity Reaction Status Date / Time No Known Allergies Allergy Verified 03/06/20 19:32 Consultations 03/06/20 18:43 ED Decision to Admit Stat 03/06/20 19:50 Consult Case Management - Discharge Planning Routine 03/06/20 23:13 Consult Cardiology Routine Ordered Studies 03/06/20 23:13 CT head/brain wo con Routine Current Diagnoses Hypertensive urgency (03/06/20) Dizziness and giddiness (03/06/20) Allergies No Known Allergies Allergy (Verified 03/06/20 19:32) Height/Weight/Isolation Height 4 ft 11 in Weight 68.3 kg Chemistry 03/06/20 15:46 Sodium 144 Potassium 3.7 Chloride 109 H Carbon Dioxide 32 Anion Gap 3.0 BUN 18 Creatinine 0.82 Glucose 118 H Urinalysis 03/07/20 14:50 Urine Color Yellow Urine Appearance Clear Urine pH 5.5 Ur Specific [place] 1.021 Urine Protein Negative Urine Glucose (UA) Negative Urine Ketones Negative Urine Blood Negative Urine Nitrite Negative Urine Bilirubin Negative Hospital Course (1) Hypertensive urgency: presented with chest heaviness, Kaylin negative, Dizzy spell with SBP > 190 pt is on Lopressor 25 mg BID( dose recently increased ) , imdur 30 mg daily - taking meds as directed ordered for nitro paste , increase Imdur 60 mg daily resting ECHO to assess hypertensive heart disease BP better CHEST HEAVINESS : due to hypertensive urgency pt felt symptom free as BP improved to 150's r/o ACS serial troponins neg /resting ECHO EF 60-65% (2) Dizziness: felt dizzy , lightheaded , headache possible due to hypertension ? no symptom at present no weakness or paresthesia PT/OT eval was fine, Seen by Cards echo normal, ZIO monitor for 14 days, f/u Dr Montano 1 week Full code labs checked ROS-No Headache, No Visual Changes, No Nausea, No Vomiting, No Fever, No Chills, No Neck Pain or Stiffness, No Chest Pain, No Palpitations, No SOB, No MERRITT, No Cough, No Sputum, No Wheezing, No Abdominal Pain, No Diarrhea, No Hematemesis, No Hemoptysis, No Unexpected Weight Loss, No Flank pain, No Melena, No Hematochezia, No Frequency, No Urgency, No Burning, No Hematuria, No Rashes, No Diaphoresis. Appetite is Normal Physical Exam Gen-AAO x 3, NAD, Afebrile Head-NCAT, EOMI, PERRLA, Anicteric Sclera, No Posterior Pharyngeal Erythema Neck-Supple, No JVD, No Thyromegaly, No Masses, No LAD, No Bruits Lungs-Clear to Auscultation Bilaterally, No Rales, No Rhonchi, No Wheezing, No Crepitus Chest-No S4, +S1, +S2, No S3, No Murmurs, No Rubs, No Gallops, No Ectopy Abdomen-Soft, Bowel Sounds Present, Non Tender, Non Distended, No Hepatomegaly, No Splenomegaly, No Palpable Masses, No Rebound, No Rigidity, No Guarding Musculoskeletal-Full Range of Motion Bilaterally, No CVAT Extremities-No Cyanosis, No Clubbing, No Edema Nuero-Cranial Nerves II-XII grossly intact, Motor WNL, DTRs WNL, Strength WNL, Non Focal Psych-Normal Mood Total Time Total Time Spent Total Time Spent (In Minutes): 45 mins Total Time Includes: Examination of the Patient, Discharge Planning, Medication Reconciliation and Communication With Other Providers Discharge Plan Discharge Items Patient Disposition: Home - Self-Care Reason For Visit: DIZZY SPELL/HYPERTENSION Discharge Diagnosis: Hypertension Urgency Dizziness Condition on Discharge: Good Health Concerns: BP control Activity: Resume your previous activity Lifting: None Bathing: No limitations Sexual Activity: When tolerated Exercise/Sports: None Driving/Machine Use: No limitations Weightbearing: Full weightbearing Non-emergency contact: Primary Care Provider and House Calls Nurse Practitioner Call non-emergency contact if: you have any medication questions Follow-up/Referrals: Loy Montano DO [House Calls Nurse Practitioner] - (1 week, Need ZIO monitor) Erika Coleman MD [Primary Care Provider] - Diet: Heart Healthy Addtl Attending Provider Instructions: Call Dr Montano's Office for a follow up in one week Pending Studies at Discharge: No Stand-Alone Forms: My Simf[employer], Smoking Cessation Medications and DC Order Prescriptions: New isosorbide mononitrate 60 mg Tablet Extended Release 24 Hr 60 mg PO DAILY Qty: 30 RF: 0 lisinopril 10 mg Tablet 10 mg PO QAM Qty: 30 RF: 0 Continued isosorbide mononitrate 30 mg tablet extended release 24 hr 30 mg PO DAILY RF: 0 clopidogrel [Plavix] 75 mg tablet 75 mg PO DAILY RF: 0 trimethoprim 100 mg tablet 100 mg PO MOWEFR RF: 0 omeprazole 20 mg capsule,delayed release(DR/EC) 20 mg PO QAM RF: 0 rosuvastatin 20 mg tablet 20 mg PO DAILY RF: 0 metoprolol tartrate 25 mg tablet 25 mg PO BID RF: 0 ranolazine [Ranexa] 500 mg tablet extended release 12 hr 500 mg PO BID RF: 0 aspirin [Aspir-Low] 81 mg Tablet,Delayed Release (Dr/Ec) 81 mg PO DAILY RF: 0 PreserVision AREDS-2 [id number]-mg Capsule 1 tab PO AMHS RF: 0 Stiolto Respimat 2.5-2.5 mcg/actuation Mist 2 puff INHALATION DAILY PRN (Reason: Shortness Of Breath Or Wheezing) RF: 0 dicyclomine 20 mg Tablet 20 mg PO DAILY RF: 0 Discharge Orders: Discharge Order (Routine); Ordered 03/07/20 Ordered By: Quique Ralph Admission Data Admit Date/Time: 03/06/20 19:48 Attending Provider: Quique Ralph Admit Provider: Aziza Smith Primary Care Provider: Erika Coleman Other Providers: Todd Camargo ; Shivam العراقي ; Chetan Samayoa ; Cesar Spicer ; Loy Montano ; Drake Contreras ; Marcela Erickson ; Paulina Phelps ; Junior Jordan ; Aziza Smith
--- NOTE | 2020-03-08 06:18 | Electrocardiogram Report ---
Test Reason : Blood Pressure : / mmHG Vent. Rate : 071 BPM Atrial Rate : 071 BPM P-R Int : 166 ms QRS Dur : 078 ms QT Int : 392 ms P-R-T Axes : 051 -17 014 degrees QTc Int : 425 ms Sinus rhythm with Premature atrial complexes Moderate voltage criteria for LVH, may be normal variant Borderline ECG When compared with ECG of 02-MAR-2020 15:38, Premature atrial complexes are now Present Confirmed by Alberto Nolasco ([id number]) on 03/08/2020 6:18:22 AM Referred By: REFERRED SELF Confirmed By:Alberto Nolasco
== END 2020-03-07 17:59 | disposition home or self-care (01) ==
LOC: 2S 14:41 → ED 14:41 → SUATTDRO 19:48 → 2S 22:34